=== PATIENT | female | born 1985 | race Caucasian/White ===

== ENCOUNTER 2023-10-01 09:33 | Outpatient (CLI) | payer SELFPAY | END 2023-10-01 23:59 | disposition home or self-care (01) | DX: M85.80 Other specified disorders of bone density and structure, unspecified site (principal); Z13.820 Encounter for screening for osteoporosis | CPT/HCPCS: 76499 ==

== ENCOUNTER 2024-07-21 10:20 | Outpatient (CLI) | payer SELFPAY | END 2024-07-21 23:59 | disposition home or self-care (01) | PROVIDERS: PCP Family Medicine | DX: M85.80 Other specified disorders of bone density and structure, unspecified site (principal) | CPT/HCPCS: 76499 ==

== ENCOUNTER → 2025-04-13 | Outpatient (CLI) | payer SELFPAY | END | disposition home or self-care (01) | PROVIDERS: PCP Family Medicine | DX: M85.871 Other specified disorders of bone density and structure, right ankle and foot (principal); M85.872 Other specified disorders of bone density and structure, left ankle and foot | CPT/HCPCS: 76499 ==